=== PATIENT | male | born 1930 | race Caucasian/White ===

== ENCOUNTER 2017-11-11 08:26 | Inpatient (IN) ==
--- NOTE | 2017-11-11 09:21 | Emergency Department Note ---
Fall HPI - General Chief Complaint: Fall Stated Complaint: Fall, left hip pain Time Seen by Provider: 11/11/17 09:17 Source: patient, EMS Mode of arrival: wheelchair - History of Present Illness HPI Narrative: Patient fell in the [facility] room [facility] the [facility] this morning. Complained about pain to his left hip. He has a contusion laceration to the left eyebrow he is not on any blood thinners but does take an 81 mg aspirin was no loss of consciousness his main complaint is pain to the left hip also some pain to the wrist on the left as well. There is shortening and external rotation to the left lower extremity. pulses is 2+ equal and strong. Normal sensation and good capillary refill. Patient is alert and oriented. The laceration to the left eyebrow is 2.0 cm mild bleeding at this time. Having no neck pain she states he stepped there was no syncope type episodes - Related Data Home Medications Medication Instructions Recorded Confirmed aspirin 81 mg tablet,delayed 81 mg PO QDAY tab 11/08/14 11/04/17 release loperamide 1 mg/7.5 mL oral liquid 2 mg PO .COMPLEX PRN ml 11/08/14 11/04/17 multivitamin tablet 1 tab PO QDAY tab 11/08/14 11/04/17 omega 9-tha-kvl-fish oil 900 1 cap PO QDAY cap 11/08/14 11/04/17 mg-1,400 mg capsule,delayed release ascorbic acid (vitamin C) 500 mg 500 mg PO QDAY tab 04/01/16 11/04/17 tablet latanoprost 0.005 % eye drops 1 drp OPHTHALMIC QDAY 04/01/16 11/04/17 melatonin 5 mg tablet 2.5 mg PO HS tab 04/01/16 11/04/17 Previous Rx's Medication Instructions Recorded BD Ultra-Fine Mill[employer] [place] 32 See Dose Instructions .ROUTE 08/28/16 gauge x 5/32" .MEDSUPPLY #300 each NS diabetic shoes #2 each 09/26/16 OneTouch UltraSoft Lancets See Dose Instructions .ROUTE 10/31/16 .MEDSUPPLY #300 each NS lancets 33 gauge See Dose Instructions .ROUTE 11/11/16 .MEDSUPPLY #300 each cyanocobalamin (vit B-12) 1,000 1,000 mcg IM QMONTH #7 each 12/24/16 mcg/mL injection kit finasteride 5 mg tablet 5 mg PO QDAY #90 tab 02/24/17 tamsulosin 0.4 mg capsule 0.4 mg PO QDAY #90 cap 02/24/17 omeprazole 20 mg capsule,delayed 20 mg PO BID #180 cap 02/25/17 release Iron 65 mg PO 3XW #1 04/03/17 gabapentin 100 mg capsule 200 mg PO QHS #180 cap 04/23/17 insulin glargine (U-100) 100 10 unit SUB-Q QDAY #10 ml 05/01/17 unit/mL subcutaneous solution compression stocking,thigh See Dose Instructions .ROUTE 07/01/17 high,regular length,medium .MEDSUPPLY #2 each circumference blood sugar diagnostic strips See Dose Instructions .ROUTE 07/03/17 .MEDSUPPLY #100 each tramadol 50 mg tablet 50 mg PO TID PRN #90 tab 07/30/17 amlodipine 5 mg tablet 5 mg PO QDAY #90 tab 08/07/17 calcitriol 0.5 mcg capsule 0.5 mcg PO .qod #45 cap 08/11/17 rosuvastatin 5 mg tablet 2.5 mg PO QDAY #45 tab 08/15/17 torsemide 10 mg tablet 10 mg PO QDAY #90 tab 08/15/17 lisinopril 5 mg tablet 5 mg PO QDAY #90 tab 11/04/17 Allergies Allergy/AdvReac Type Severity Reaction Status Date / Time codeine AdvReac Mild Itching Verified 11/04/17 08:57 Procaine AdvReac Mild Itching Verified 11/04/17 08:57 Review of Systems All systems ED: reviewed and negative except as stated. Musculoskeletal: Reports: as per HPI, other (Pain to the left hip) Neurological: Reports: as per HPI, other (Laceration to the left eyebrow). Denies: headache, weakness, numbness, paresthesias, confusion, abnormal gait, dizziness Fall PMH - Past Medical History Medical history: Reports: CHF, COPD, coronary artery disease, DM, GERD, glaucoma , hyperlipidemia, hypertension, osteoporosis, renal disease, thyroid disease, valvular heart disease Family history: Reports: no significant family history - Social History smoking status: Former smoker Alcohol use: Reports: None Drug use: Reports: none Physical Exam Limitations: no limitations General appearance: alert Head: atraumatic Eye: Present: normal appearance, PERRL ENT: normal exam, normal oropharynx Neck: Present: normal inspection, full ROM Chest: Present: normal inspection Respiratory: Present: normal lung sounds bilaterally. Absent: respiratory distress, wheezes Cardiovascular: Present: regular rate, normal rhythm. Absent: bradycardia, tachycardia Abdominal: Present: soft, distention Extremities: Present: normal inspection, full ROM Hip/Pelvis: Present: tenderness (Tenderness to the left hip) Upper leg: Present: full ROM. Absent: tenderness Knee: Present: normal inspection, full ROM. Absent: tenderness Lower leg: Present: normal inspection, full ROM, other (Shortening and external rotation). Absent: tenderness Ankle: Present: normal inspection, full ROM Foot/toe: Present: normal inspection, full ROM. Absent: tenderness Neurovascular/Tendon: Present: normal capillary refill. Absent: pulse deficit, motor deficit Back: Present: normal inspection Course Vital Signs Temperature 97.2 F 11/11/17 08:26 Pulse Rate 88 11/11/17 08:26 Respiratory Rate 18 11/11/17 08:26 Blood Pressure 138/80 11/11/17 08:26 Pulse Oximetry (%) 98 11/11/17 08:26 Temperature 97.2 F 11/11/17 08:26 Pulse Rate 71 11/11/17 11:01 Respiratory Rate 18 11/11/17 08:26 Blood Pressure 122/76 11/11/17 11:01 Pulse Oximetry (%) 98 11/11/17 11:01 Procedures - Laceration Laceration 1 Site: face Description: stellate Depth: simple, single layer Local Anesthetic: lidocaine 1% Pre-repair: wound explored Size: 5-0 Technique: simple, interrupted Fall - MDM Narrative Medical decision making narrative: Head CT is negative, laceration of the left eyebrow sutured with 5 5-[address] of the hip and pelvis reveal fracture through the surgical neck of the left femur. Normal sensation full range of motion. Dr. Head contacted and requested the hospitalist to workup for possible surgery of the left hip. Patient last ate breakfast donut at 6:00 in the morning. - Lab Data Result diagrams: 11/11/17 09:29 11/11/17 09:29 Lab Results 11/11/17 11/11/17 11/11/17 Range/Units 09:29 09:29 09:29 WBC 9.9 (4.5-11.0) K/mcL RBC 3.85 L (4.50-5.90) M/mcL Hgb 12.6 L (13.5-16.5) g/dL Hct 37.5 L (41.0-55.0) % MCV 97.5 (80.0-100.0) fL MCH 32.7 (26.0-34.0) pg MCHC 33.5 (31.0-36.0) g/dL RDW 13.9 (11.5-14.5) % Plt Count 163 (140-440) K/mcL MPV 7.6 (7.4-10.4) fL Gran % 78.4 H (38.0-78.0) % Lymph % (Auto) 14.8 L (15.5-49.0) % [place] % (Auto) 4.6 (1.0-12.0) % Eos % (Auto) 1.9 (0.0-7.0) % Baso % (Auto) 0.3 (0.0-2.0) % Gran # 7.8 (1.8-8.0) K/mcL Lymph # (Auto) 1.5 (1.5-4.8) K/mcL [place] # (Auto) 0.5 (0.1-0.9) K/mcL Eos # (Auto) 0.2 (0.0-0.7) K/mcL Baso # (Auto) 0 (0.0-0.3) K/mcL PT 13.4 (11.9-14.5) sec INR 1.0 (0.9-1.1) Sodium 139 (133-145) mmol/L Potassium 4.4 (3.3-5.1) mmol/L Chloride 101 (96-108) mmol/L Carbon Dioxide 24 (22-30) mmol/L Anion Gap 14.0 (8-16) BUN 20 (8-23) mg/dl Creatinine 1.8 H (0.7-1.2) mg/dl GFR Calculation 33 Glucose 86 (70-105) mg/dL Calcium 9.2 (8.6-10.4) mg/dl Total Bilirubin 0.4 (0.0-1.0) mg/dL AST 32 (0-37) U/l ALT 24 (0-40) U/l Alkaline Phosphatase 72 (39-117) U/L Total Protein 6.3 (5.9-8.4) gm/dL Albumin 3.8 (3.2-5.2) gm/dL Globulin 2.5 (2.2-3.7) gm/dL Albumin/Globulin Ratio 1.5 (1.0-2.3) Disposition Pt seen by SYSTEMS SOFTWARE ENGINEER/PA only: No Clinical Impression: Fracture of left hip Qualifiers: Encounter type: initial encounter Fracture type: closed Qualified Code(s): S72.002A - Fracture of unspecified part of neck of left femur, initial encounter for closed fracture Disposition: Xfer As Inpt ([facility]) Condition: Fair Instructions: Hip Fracture (ED) Referrals: Troy Ruano MD [Primary Care Provider] -
[2017-11-11] MEDS ORDERED: HYDROmorphone 2 MG/ML VIAL IV PRN ×3 (09:25→16:41)
[2017-11-11] MEDS ORDERED: ONDANSETRON 4 MG/2 ML VIAL IV ONE ×2 (09:25→15:15)
--- NOTE | 2017-11-11 09:36 | Cat Scan Report ---
CLINICAL INFORMATION: Trauma COMPARISON: 11/23/[address] TECHNIQUE: 2.5 mm helical slices were obtained in the skull base to vertex. Following reconstruction, axial reformatted images were reviewed at bone and parenchymal windows. The exam was performed using radiation dose optimization techniques including, but not limited to, automated exposure control, adjustment of the mA and/or kV according to patient size and use of iterative reconstruction technique. FINDINGS: The ventricles, sulci, fissures, and cisterns are minimally enlarged compatible with mild age-related atrophy - no subdural hemorrhage or extra-axial fluid collection appreciated. Patchy chronic ischemic changes in the deep cerebral white matter are stable. There is no intracerebral hemorrhage, mass effect or edema. A 3 cm scalp hematoma is seen in the left superolateral supraorbital region - no underlying fracture. There is a minimally comminuted nasal fracture with may be chronic. IMPRESSION: Mild atrophy and chronic ischemic changes deep cerebral white matter - expected for age and stable since 11/23/2014. No intracerebral hemorrhage or other acute intracerebral finding 3 cm scalp hematoma in the left superior lateral orbital region. No underlying fracture Minimally comminuted displaced nasal fracture - age indeterminate Interpreted and Authenticated by: Jadiel Gann 11/11/17
--- NOTE | 2017-11-11 09:37 | XRay Report ---
CLINICAL INFORMATION: Trauma COMPARISON: 11/25/2014 FINDINGS: The heart size, mediastinum and pulmonary vessels are unremarkable. The lungs are clear. There are no effusions. A few old healed left-sided rib fractures noted. No definite acute fracture on the basis of this portable chest x-ray. IMPRESSION: Normal chest. Interpreted and Authenticated by: Jadiel Gann 11/11/17
--- NOTE | 2017-11-11 09:39 | XRay Report ---
CLINICAL INFORMATION: Trauma COMPARISON: None. FINDINGS: No fracture identified. Severe degenerative change in the radiocarpal, scapholunate, STT and first CMC joints are noted. There is a 14 mm degenerative cyst in the base of the radial styloid process. Heavy calcification seen in the triangle fibrocartilage. Mild diffuse soft tissue swelling noted IMPRESSION: No evidence of fracture. Chronic findings - as described Interpreted and Authenticated by: Jadiel Gann 11/11/17
[2017-11-11] MEDS ORDERED: EPINEPHRINE TOPICAL ONE (09:42)
[2017-11-11] MEDS ORDERED: LIDOCAINE HCL TOPICAL ONE (09:42)
[2017-11-11] MEDS ORDERED: DIPH,PERTUSS(ACELL),TET VAC/PF 0.5 ML SYRINGE IM ONE (09:44)
--- NOTE | 2017-11-11 09:54 | Cat Scan Report ---
CLINICAL INFORMATION: Trauma COMPARISON: Abdomen and pelvic CT - 08/21/2014. TECHNIQUE: 0.625 mm helical slices were obtained from the mid L4 through the subtrochanteric regions. Following reconstruction, 2.5 mm sagittal, coronal and axial reformations were processed. The exam was reviewed in bone and soft tissue windows. The exam was performed using radiation dose optimization techniques including, but not limited to, automated exposure control, adjustment of mA and/or kV according to patient size and use of iterative reconstruction technique. FINDINGS: There is an acute, obliquely oriented minimally displaced fracture through the base of the left femoral neck. Less than 10 degrees anterior angulation of fracture apex. Moderate degenerative change in the left hip has progressed the previous study. Right total hip prostheses remains anatomically aligned without evidence of loosening or infection. Mild degenerative change in both SI joints is stable. Soft tissues show normal-appearing prostate, seminal vesicles and urinary bladder. There are multiple sigmoid diverticuli with small amount of fluid in the posterior perisigmoid fat. This was not present in the previous CT. The remainder of the visualized colon and small bowel are normal. Minimal ectasia of the distal infrarenal abdominal aortic and iliac arteries is stable. IMPRESSION: 1. Acute, oblique minimally displaced fracture through the left femoral neck base. 2. Moderate degenerative change of the left hip progressing from the 2015 CT 3. Right total hip prostheses is anatomically aligned without evidence of loosening or infection 4. Sigmoid diverticulosis. No definite evidence of diverticulitis. The exception of a small amount of fluid in the perisigmoid fat. Please correlate with left lower quadrant pain and other symptoms Interpreted and Authenticated by: Jadiel Gann 11/11/17
[2017-11-11 09:58] LABS: Basophils # (Auto) 0 K/mcL (0.0-0.3); Basophils % (Auto) 0.3 % (0.0-2.0); Eosinophils # (Auto) 0.2 K/mcL (0.0-0.7); Eosinophils % (Auto) 1.9 % (0.0-7.0); Granulocytes % (Auto) 78.4 % (38.0-78.0); Lymphocytes # (Auto) 1.5 K/mcL (1.5-4.8); Lymphocytes % (Auto) 14.8 % (15.5-49.0); Mean Cell Volume 97.5 fL (80.0-100.0); Mean Corpuscular HGB Conc 33.5 g/dL (31.0-36.0); Mean Corpuscular Hemoglobin 32.7 pg (26.0-34.0); Monocytes # (Auto) 0.5 K/mcL (0.1-0.9); Monocytes % (Auto) 4.6 % (1.0-12.0); Platelet Count 163 K/mcL (140-440); RBC 3.85 M/mcL (4.50-5.90); Red Cell Distribution Width 13.9 % (11.5-14.5)
[2017-11-11] MEDS ORDERED: 0.9 % SODIUM CHLORIDE 1,000 ML IV SCH (10:00)
[2017-11-11 10:16] LABS: ALT/SGPT 24 U/l (0-40); Albumin 3.8 gm/dL (3.2-5.2); Albumin/Globulin Ratio 1.5 (1.0-2.3); Alkaline Phosphatase 72 U/L (39-117); Blood Urea Nitrogen 20 mg/dl (8-23)
[2017-11-11 11:58] LABS: Appearance,Urine CLEAR; Bacteria,Urine 0 /hpf (0); Bilirubin,Urine NEG (NEG); Color,Urine STRAW; Glucose,Urine (UA) NEGATIVE (NEG); Leukocyte Esterase,Urine NEG /uL (NEG); Mucus,Urine FEW /hpf (0); Protein,Urine NEG (NEG); Specific Gravity,Urine 1.009 (1.000-1.035); Urine Blood NEG mg/dL (<0.03); Urine Hyaline Cast 4 /lpf (0-2); Urine RBC 0 /hpf (0-1); Urine Squamous Epithelial Cell 0 /hpf (0-4); Urine WBC 0 /hpf (0-4); Urobilinogen,Urine NEG (NEG)
[2017-11-11] MEDS ORDERED: traZODone HCL 50 MG TABLET PO PRN (13:24)
[2017-11-11] MEDS ORDERED: MAGNESIUM SULFATE 2 GM/50 ML BAG IV PRN (13:24)
[2017-11-11] MEDS ORDERED: POTASSIUM CHLORIDE 20 MEQ PACKET PO PRN (13:24)
[2017-11-11] MEDS ORDERED: ACETAMINOPHEN 1,000 MG/100 ML BOTTLE IV PRN (13:24)
[2017-11-11] MEDS ORDERED: ONDANSETRON 4 MG/2 ML VIAL IV PRN (13:24)
[2017-11-11] MEDS ORDERED: DEXTROSE 50% 50 ML VIAL IV PRN (13:24)
[2017-11-11] MEDS ORDERED: BISACODYL 10 MG SUPP.RECT PR PRN (13:24)
[2017-11-11] MEDS ORDERED: MAGNESIUM HYDROXIDE 30 ML ORAL.SUSP PO PRN (13:24)
[2017-11-11] MEDS ORDERED: DEXTROSE 31 GM ORAL.SUSP PO PRN (13:24)
[2017-11-11] MEDS: 0.9 % SODIUM CHLORIDE 1,000 ML IV SCH (13:46)
[2017-11-11] MEDS: 0.9 % SODIUM CHLORIDE 10 ML SYRINGE IV SCH ×2 (13:47→22:09)
[2017-11-11] MEDS ORDERED: ceFAZolin 1 GM VIAL IV ONE (14:11)
[2017-11-11] MEDS ORDERED: DEXAMETHASONE 10 MG/ML VIAL IV ONE (15:15)
[2017-11-11] MEDS ORDERED: ePHEDrine 50 MG/ML AMPUL IV ONE (15:15)
[2017-11-11] MEDS ORDERED: PROPOFOL 200 MG/20 ML VIAL IV ONE (15:15)
[2017-11-11] MEDS ORDERED: MIDAZOLAM 2 MG/2 ML VIAL IV ONE (15:15)
[2017-11-11] MEDS ORDERED: LIDOCAINE HCL/PF 100 MG/5 ML SYRINGE IV ONE (15:15)
[2017-11-11] MEDS ORDERED: PHENYLEPHRINE 10 MG/ML VIAL IV ONE (15:15)
[2017-11-11] MEDS ORDERED: fentaNYL 100 MCG/2 ML VIAL IV ONE (15:15)
--- NOTE | 2017-11-11 15:23 | Consultation ---
DATE OF CONSULTATION: 11/11/2017 IDENTIFICATION: The patient is an 87-year-old male. CHIEF COMPLAINT: Left hip fracture. HISTORY: The patient sustained a fall in the locker room of the [employer] this morning. He had immediate pain in the left hip, was transferred to the emergency room here where he was evaluated and radiographs have demonstrated a femoral neck fracture. We are now called for further evaluation and management. PAST MEDICAL HISTORY: Significant for hypertension and some ophthalmologic issues. Otherwise, he is really quite healthy. PAST SURGICAL HISTORY: Significant for previous right total hip arthroplasty, but noncontributory to this left hip problem. MEDICATIONS: 1. Aspirin. 2. Loperamide. 3. Multivitamin. 4. Vitamin C. 5. Latanoprost eyedrops. 6. Melatonin. 7. Flomax. 8. Finasteride. 9. Gabapentin. 10. Insulin. 11. Tramadol. 12. Lisinopril. ALLERGIES: 1. CODEINE which causes itching. 2. PROCAINE which causes itching. REVIEW OF SYSTEMS: The balance of a 10-point review of systems is negative. He has generally been in a good state of health, living independently at [facility]. PHYSICAL EXAMINATION: GENERAL: Awake and alert, resting comfortably. ORTHOPEDIC: His bilateral lower extremities are carefully positioned. He has no deformity. He does have some pain in the left knee with range of motion consistent with a chronic problem. He has pain with any range of motion of the left hip. He has no gross deformity. No significant shortening. He has minimal lymphedema. NEUROVASCULAR: Without deficit in his bilateral lower extremities. IMAGING: Radiographs demonstrate a minimally displaced fracture of the femoral neck which is quite low on some of the views but is transcervical mid-neck on some of the other views. IMPRESSION: Nondisplaced or minimally displaced femoral neck fracture of the left. PLAN: We will plan to proceed with a reduction and fixation via cannulated screws. The procedure, risks, complications and limitations were discussed with the patient. He understands these well and wishes to proceed. ESTEFANÍA:min Job ID: [id number] Doc ID: [id number] Rudolph Head MD
[2017-11-11] MEDS ORDERED: BENZOCAINE/MENTHOL 1 LOZENGE PO PRN (16:05)
[2017-11-11] MEDS ORDERED: IPRATROPIUM/ALBUTEROL 3 ML AMPUL.NEB NEB PRN ×2 (16:05→16:41)
[2017-11-11] MEDS ORDERED: MEPERIDINE 25 MG/ML SYRINGE IV PRN (16:05)
[2017-11-11] MEDS ORDERED: FLUMAZENIL 0.1 MG/ML ML IV PRN (16:05)
[2017-11-11] MEDS ORDERED: METHOCARBAMOL 1,000 MG/10 ML VIAL IV PRN (16:05)
[2017-11-11] MEDS ORDERED: LACTATED RINGERS 250 ML IV PRN (16:05)
[2017-11-11] MEDS ORDERED: NALOXONE HCL 0.4 MG/ML VIAL IV PRN (16:05)
[2017-11-11] MEDS ORDERED: PROMETHAZINE 25 MG/ML VIAL IV PRN (16:05)
[2017-11-11] MEDS ORDERED: ACETAMINOPHEN 1,000 MG/100 ML BOTTLE IV ONE (16:05)
--- NOTE | 2017-11-11 16:10 | Brief Operative Note ---
Date of procedure: 11/11/17 Pre-op diagnosis: hip fracture Post-op diagnosis: same Procedure: cannulated screws Grafts/Implants: Yes (kervin) Anesthesia: GETA Complications: none Surgeon: Rudolph Head Estimated blood loss (cc): 10 Condition: stable Disposition: PACU
[2017-11-11] MEDS ORDERED: LACTATED RINGERS 1,000 ML IV SCH (16:15)
[2017-11-11] MEDS ORDERED: HYDROCODONE/APAP 7.5/325MG TABLET PO ONE (16:16)
[2017-11-11] MEDS: fentaNYL 100 MCG/2 ML VIAL IV PRN ×3 (16:21→16:34)
[2017-11-11] MEDS ORDERED: PROMETHAZINE 25 MG/ML VIAL IM PRN (16:41)
[2017-11-11] MEDS ORDERED: MEPERIDINE 50 MG/ML INJECTION IM PRN (16:41)
[2017-11-11 17:15] LABS: Appearance,Urine CLEAR; Bacteria,Urine 0 /hpf (0); Bilirubin,Urine NEG (NEG); Color,Urine STRAW; Glucose,Urine (UA) NEGATIVE (NEG); Leukocyte Esterase,Urine NEG /uL (NEG); Mucus,Urine FEW /hpf (0); Protein,Urine NEG (NEG); Specific Gravity,Urine 1.012 (1.000-1.035); Urine Blood NEG mg/dL (<0.03); Urine Hyaline Cast 6 /lpf (0-2); Urine RBC 1 /hpf (0-1); Urine Squamous Epithelial Cell 0 /hpf (0-4); Urine WBC < 1 /hpf (0-4); Urobilinogen,Urine NEG (NEG)
[2017-11-11] MEDS: INSULIN LISPRO 1 UNIT/0.01 ML UNIT SQ SCH ×2 (17:49→21:35)
--- NOTE | 2017-11-11 18:08 | XRay Report ---
CLINICAL INFORMATION: ORIF left femoral neck fracture COMPARISON: None. FINDINGS: Digital films from the OR are submitted. Final film shows acute fracture through the left femoral neck reduced to anatomic alignment and transfixed by three cannulated screws IMPRESSION: ORIF femoral neck fracture - anatomic alignment Interpreted and Authenticated by: Jadiel Gann 11/11/17
--- NOTE | 2017-11-11 20:17 | Internal Med History&Physical ---
Medical - H&P: [facility] Patient information: Note initiated : 11/11/17 at 8:14 pm Service Date, if different from initiated Date: [] Patient: John Hernández a 87 y/o M admitted on 11/11/17 for Fall, Lt Hip Pain. Chief Complaint: [] Chief complaint: fall with left hip pain History of present illness: Mr. Hernández is a 87 year old M sustained fall injuring left hip. [facility] [place] [facility] when he suddenly went down. It is unclear the exact precipitant as he does not recollect slipping or tripping. He landed on his left hip sustaining injury. He was subsequently brought into the ER Workup in ER consistent with left hip fracture. Admitted for operative repair. Orthopedics consulted. Extensive past medical issues including chronic kidney disease/insulin-dependent DM type 2/history of CAD. Patient denies lightheadedness chest pain, neck pain, vertigo, dizziness, thunderclap headache or recent falls. He denies fever chills shortness of breath diarrhea dysuria, weight loss Review of systems 10 point review systems was performed and is negative except as discussed above Medical - H&P: PMH Medical history: Medical History (Last Reviewed 11/04/17 @ 12:33 by Chantelle Serna MD) Upper respiratory infection (Resolved) Expressive aphasia (Resolved) Skin tear of left upper arm without complication (Resolved) Benign prostatic hyperplasia (Chronic) Secondary hyperparathyroidism of renal origin (Chronic) Hypertensive renal disease (Chronic) Vitamin D deficiency (Chronic) Urinary urgency (Chronic) Urinary incontinence (Chronic) Renal osteodystrophy (Chronic) Chronic renal failure, stage 3 (moderate) (Chronic) Pseudophakia (Chronic) Acute gouty arthropathy (Chronic) History of nose injury (Resolved) Peripheral vascular disease (Chronic) Overweight (Chronic) Osteoarthrosis (Chronic) Osteoarthritis (Chronic) Nocturia (Chronic) Acquired hypothyroidism (Chronic) Hyperuricemia (Chronic) Hypertension, essential (Chronic) Hyperparathyroidism, secondary renal (Chronic) Hyperlipidemia (Chronic) Chronic kidney disease (Chronic) Gout (Chronic 02/20/12) Glaucoma (Chronic) Gastroesophageal reflux (Chronic) Edema (Chronic) Dysuria (Chronic) Double vision (Chronic) Diverticulosis of colon (Chronic) Type 2 diabetes mellitus (Chronic) Degenerative joint disease (Chronic) Cramp of limb (Chronic) 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) Congestive heart failure (Chronic) History of colonic polyps (Chronic) Colitis, Clostridium difficile (Chronic 09/01/14) Chronic obstructive pulmonary disease (Chronic) Chronic kidney disease, stage IV (severe) (Chronic) Ischemia of heart, chronic (Chronic) Benign prostatic hypertrophy with lower urinary tract symptoms (LUTS) (Chronic) Blepharitis (Chronic) Barretts esophagus (Chronic) 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) Anemia (Chronic) Surgical history: Social History (Last Updated 11/04/17 @ 12:41 by Chantelle Serna MD) No Social History Section defined Past Surgical History (Last Reviewed 11/04/17 @ 12:33 by Chantelle Serna MD) History of total hip arthroplasty (Resolved) History of tonsillectomy (Resolved) History of coronary artery stent placement (Resolved) History of colonoscopy (Resolved) History of colectomy (Resolved) History of cholecystectomy (Resolved) History of bilateral cataract extraction (Resolved) History of appendectomy (Resolved) History of adenoidectomy (Resolved) History of abdominal surgery (Resolved) Abnormal findings on esophagogastroduodenoscopy (EGD) (Chronic) History of esophagogastroduodenoscopy (EGD) (Chronic 09/23/17) Pertinent family history: Family History (Last Reviewed 11/04/17 @ 12:33 by Chantelle Serna MD) Unknown Family history of diabetes mellitus Mother Essential hypertension Father Parkinson's Disease Smoking status: Former smoker Medical - H&P: Meds Home Medications Medication Instructions Recorded Confirmed Type aspirin 81 mg tablet,delayed 81 mg PO QDAY tab 11/08/14 11/11/17 History release multivitamin tablet 1 tab PO QDAY tab 11/08/14 11/11/17 History omega 3-qxg-pmy-fish oil 900 1 cap PO QDAY cap 11/08/14 11/11/17 History mg-1,400 mg capsule,delayed release ascorbic acid (vitamin C) 500 mg 500 mg PO QDAY tab 04/01/16 11/11/17 History tablet latanoprost 0.005 % eye drops 1 drp OPHTHALMIC QDAY 04/01/16 11/11/17 History melatonin 5 mg tablet 2.5 mg PO HS tab 04/01/16 11/11/17 History cyanocobalamin (vit B-12) 1,000 1,000 mcg IM QMONTH #7 each 12/24/16 11/11/17 Rx mcg/mL injection kit finasteride 5 mg tablet 5 mg PO QDAY #90 tab 02/24/17 11/11/17 Rx tamsulosin 0.4 mg capsule 0.4 mg PO QDAY #90 cap 02/24/17 11/11/17 Rx omeprazole 20 mg capsule,delayed 20 mg PO BID #180 cap 02/25/17 11/11/17 Rx release Iron 65 mg PO 3XW #1 04/03/17 11/11/17 Rx gabapentin 100 mg capsule 200 mg PO QHS #180 cap 04/23/17 11/11/17 Rx tramadol 50 mg tablet 50 mg PO TID PRN #90 tab 07/30/17 11/11/17 Rx amlodipine 5 mg tablet 5 mg PO QDAY #90 tab 08/07/17 11/11/17 Rx calcitriol 0.5 mcg capsule 0.5 mcg PO .qod #45 cap 08/11/17 11/11/17 Rx rosuvastatin 5 mg tablet 2.5 mg PO QDAY #45 tab 08/15/17 11/11/17 Rx Blood Sugar Diagnostic [Contour] 0 each .ROUTE .MEDSUPPLY 11/11/17 11/11/17 History Comp.stocking,Thigh,Reg,Medium 0 each .ROUTE .MEDSUPPLY 11/11/17 11/11/17 History [T.e.d. Anti-Embolism Stocking] Insulin Glargine, Human [Lantus] 8 unit SQ QPM 11/11/17 11/11/17 History Lancets [Micro Thin Lancets] 0 each .ROUTE .MEDSUPPLY 11/11/17 11/11/17 History Lancets [OneTouch UltraSoft 0 each .ROUTE .MEDSUPPLY 11/11/17 11/11/17 History Lancets] Pen Needle, Diabetic [BD 0 each .ROUTE .MEDSUPPLY 11/11/17 11/11/17 History Ultra-Fine Millicent Pen [place]] diabetic shoes 1 each MISC DAILY 11/11/17 11/11/17 History Aspirin 325 mg PO BID #60 tab 11/13/17 Rx Hydrocodone/APAP 7.5/325Mg [Romeo 1 - 2 tab PO Q6HP PRN #60 tab 11/13/17 Rx 7.5-325Mg] torsemide 10 mg tablet 10 mg PO QDAY #90 tab 11/13/17 Rx traMADol [Ultram] 50 mg PO Q6HP PRN #60 tab 11/13/17 Rx Allergies Allergy/AdvReac Type Severity Reaction Status Date / Time codeine AdvReac Mild Itching Verified 11/04/17 08:57 Procaine AdvReac Mild Itching Verified 11/04/17 08:57 Medical - H&P: Exam - Constitutional Vitals: Temp Pulse Resp BP Pulse Ox 98.1 F 85 16 120/77 95 11/11/17 17:02 11/11/17 17:42 11/11/17 17:30 11/11/17 17:42 11/11/17 19:09 General appearance: cooperative, no acute distress Exam: Alert oriented nonlabored breathing Eye movements symmetric Oral cavity dry no ear discharge head normocephalic,Significant bruising left eye Neck no lymphadenopathy S1 and S2 regular Chest diminished breath sounds bases Tenderness left lateral chest Abdomen soft Skin extensive bruising left upper extremity/face and lower extremity Left lower extremity rotated and shortened Psych alert cooperative Neuro nonfocal normalized function Medical - H&P: Reslt - Labs CBC & Chem 7: 11/13/17 04:21 11/13/17 04:21 Labs: Short CBC 11/11/17 Range/Units 09:29 WBC 9.9 (4.5-11.0) K/mcL Hgb 12.6 L (13.5-16.5) g/dL Hct 37.5 L (41.0-55.0) % Plt Count 163 (140-440) K/mcL BMP 11/11/17 09:29 Sodium 139 Potassium 4.4 Chloride 101 Carbon Dioxide 24 BUN 20 Creatinine 1.8 H Glucose 86 Calcium 9.2 Liver Function 11/11/17 Range/Units 09:29 Total Bilirubin 0.4 (0.0-1.0) mg/dL AST 32 (0-37) U/l ALT 24 (0-40) U/l Alkaline Phosphatase 72 (39-117) U/L Albumin 3.8 (3.2-5.2) gm/dL Urine 11/11/17 11/11/17 Range/Units 11:27 13:55 Urine Color Straw Straw Urine Appearance Clear Clear Urine pH 6.0 6.0 (5.0-9.0) Ur Specific [place] 1.009 1.012 (1.000-1.035) Urine Protein Neg Neg (NEG) mg/dL Urine Glucose (UA) Negative Negative (NEG) mg/dL Medical - H&P: A/P (1) Fracture of left hip Current visit: Yes Status: Acute * Left femoral neck fracture-orthopedics consulted for operative repair. Management per orthopedics * Pain management per orthopedics Hospitalist consult * Preop risk eval- based on RCRI [place] [employer] risk stratification patient would fall under high risk category given advanced age along with history of coronary artery disease and IDDm. also underlying CKD with creatinine 1,8. however no modifiable risk factors. Risks were discussed with patient, Pt can proceed with surgery. He clearly understands the risk which may include acute coronary event/CVA in the immediate intraoperative/ postoperative phase. There are no modifiable risk factors. Surgery and anesthesia specific risk factors will be addressed by individual care providers. * History of hypertension on amlodipine * BPH on finasteride/tamsulosin * Neuropathy on gabapentin * DM type II on basal prandial insulin * History of glaucoma latanoprost * GERD on PPI * Hyperlipidemia and statin * Full code * Prophylaxis subcutaneous heparin to start to lower postoperatively Plan * Review postop * Restart home meds * Pain management per orthopedics Medical - H&P: Qual - Stroke Symptom Onset Unknown: No - VTE Deep Vein Thrombosis/Pulmonary Embolism Present on Admission: No
[2017-11-11] MEDS: GABAPENTIN 100 MG CAPSULE PO SCH (21:34)
[2017-11-11] MEDS: DOCUSATE SODIUM 100 MG CAPSULE PO SCH (21:35)
[2017-11-11] MEDS: SENNOSIDES/DOCUSATE SODIUM 1 TAB TABLET PO SCH (21:35)
[2017-11-11] MEDS ORDERED: INSULIN GLARGINE, HUMAN 1 UNIT/0.01 ML SQ ONE (22:08)
[2017-11-11] MEDS: LATANOPROST OPHTH DROPS 2.5ML BOTTLE OU SCH (22:09)
[2017-11-11] MEDS: INSULIN GLARGINE, HUMAN 1 UNIT/0.01 ML SQ SCH ×2 (22:09→22:10)
[2017-11-12] MEDS: traMADol 50 MG TABLET PO PRN ×2 (06:12→20:49)
[2017-11-12] MEDS: 0.9 % SODIUM CHLORIDE 10 ML SYRINGE IV SCH ×3 (06:12→20:51)
--- NOTE | 2017-11-12 06:54 | Orthopedic Progress Note ---
Subjective Patient information: Note initiated : 11/12/17 at 6:52 am Service Date, if different from initiated Date: [] Patient: John Hernández 87 y/o M admitted on 11/11/17 for Fall, Lt Hip Pain. Chief Complaint: [S/p ORIF of left femoral neck fx] Patient is doing well. Complains of mild left lateral post-surgical hip pain. Denies any lower extremity weakness, SOA, chest pain, or calf tenderness. Principal diagnosis: Left femoral neck fx Objective Vital signs: Vital Signs Temp Pulse Pulse Resp BP BP Pulse Ox 11/12/17 03:05 97.9 F 80 12 108/63 94 11/12/17 00:00 97.6 F 88 12 92/54 94 11/11/17 20:01 97.4 F 91 H 12 96/70 94 11/11/17 19:09 95 11/11/17 19:01 81 125/84 95 11/11/17 18:32 92 H 130/72 95 11/11/17 18:16 93 H 126/79 99 11/11/17 18:01 89 104/71 96 11/11/17 17:42 85 120/77 94 11/11/17 17:30 92 H 16 98 11/11/17 17:27 75 126/67 96 11/11/17 17:12 83 111/56 97 11/11/17 17:02 98.1 F 83 12 128/63 100 11/11/17 16:50 84 12 111/74 100 11/11/17 16:35 82 14 124/65 100 11/11/17 16:30 83 12 137/74 100 11/11/17 16:25 81 12 124/70 100 18 16:20 86 18 124/71 100 11/11/17 16:15 88 16 108/67 100 11/11/17 16:10 67 10 L 102/67 100 11/11/17 16:05 97.7 F 72 12 87/51 99 11/11/17 13:24 96.9 F L 80 16 125/70 95 11/11/17 13:18 96.9 F L 80 16 125/70 95 11/11/17 12:31 88 106/71 98 11/11/17 12:01 79 128/78 98 11/11/17 11:31 80 107/70 98 11/11/17 11:01 71 122/76 98 11/11/17 10:51 74 90 11/11/17 10:46 74 113/66 93 11/11/17 10:32 74 115/59 94 11/11/17 10:17 146/76 11/11/17 10:01 80 139/90 96 11/11/17 09:46 84 134/82 95 11/11/17 09:31 71 137/80 95 11/11/17 09:16 79 143/94 96 11/11/17 09:13 79 150/88 97 11/11/17 08:31 90 138/80 95 11/11/17 08:26 97.2 F 88 18 138/80 98 Intake and Output 11/11/17 11/12/17 11/12/17 21:59 05:59 13:59 Intake Total 1200 / 1200 340 / 340 Output Total 620 / 620 175 / 175 100 / 100 Balance 580 / 580 165 / 165 -100 / -100 Intake: IV 1200 / 1200 Oral 340 / 340 Output: Void Amount 550 / 550 175 / 175 100 / 100 Estimated Blood Loss 70 / 70 Other: # Voids 2 Weight 162 lb 8 oz Intake & Output: Intake & Output 11/11/17 11/12/17 11/12/17 21:59 05:59 13:59 Intake Total 1200 / 1200 340 / 340 Output Total 620 / 620 175 / 175 100 / 100 Balance 580 / 580 165 / 165 -100 / -100 Weight 162 lb 8 oz Intake: IV 1200 / 1200 Oral 340 / 340 Output: Void Amount 550 / 550 175 / 175 100 / 100 Estimated Blood Loss 70 / 70 Other: # Voids 2 Incision: Yes healing, Yes clean and dry Incision clean and dry: Yes Dressing: Yes clean, Yes dry, Yes intact Weight bearing status: non (TTWB on LLE) Neurological exam IM: Yes alert, Yes oriented X3, Yes motor sensory intact, Yes neurovascular intact Extremities exam IM: Yes calf tenderness (Negative), Yes tenderness (Left lateral hip), Yes Edgar's sign (Negative), Yes Foot pink and warm, Yes neurovascular intact - Labs CBC & BMP: 11/11/17 09:29 11/11/17 09:29 Labs: Orthopedic Labs 11/11/17 09:29 PT 13.4 INR 1.0 11/12/17 11/11/17 05:51 09:29 Hgb Pending 12.6 L Hct Pending 37.5 L Assessment and Plan (1) Fracture of left hip TTWB on LLE. May stand with PT. Likely discharge to [facility] for rehab in 2 days. Status: Acute Qualifiers: Encounter type: initial encounter Fracture type: closed Qualified Code(s) : S72.002A - Fracture of unspecified part of neck of left femur, initial encounter for closed fracture
--- NOTE | 2017-11-12 06:56 | Operative Note ---
DATE OF OPERATION: 11/11/2017 PREOPERATIVE DIAGNOSIS: Left femoral neck fracture. POSTOPERATIVE DIAGNOSIS: Left femoral neck fracture. OPERATION PROPOSED: Internal fixation using cannulated screws, left femoral neck fracture. OPERATION PERFORMED: Internal fixation using cannulated screws, left femoral neck fracture. OPERATING SURGEON: Gabe Head MD LIQUID SUGAR FORTIFIER: None. INDICATIONS: This is a gentleman who has a minimally displaced femoral neck fracture. Some of it does go fairly low, but we have elected to proceed with fixation using cannulated screws. We have reviewed the risks, complications and limitations, and patient wishes to proceed. OPERATION IN DETAIL: Informed consent was obtained. He was taken to the operating where he was provided appropriate anesthetic and prophylactic antibiotics. He was carefully positioned. His hip was prepped sterilely. A 3.2 mm guidewire was advanced retrograde across the fracture. I then advanced a 6.5 cannulated screw across the fracture, this at actually fairly reasonable purchase of each of the three screws. I placed two additional screws cephalad, one anterior and one posterior. The wounds were irrigated, and closed with 2-0 inverted and Dermabond. The patient tolerated the procedure well. No complications. Estimated blood loss nil. GDD:hattie Job ID: [id number] Doc ID: [id number] Rudolph Head MD
[2017-11-12 07:41] LABS: Mean Cell Volume 98.8 fL (80.0-100.0); Mean Corpuscular HGB Conc 33.1 g/dL (31.0-36.0); Mean Corpuscular Hemoglobin 32.7 pg (26.0-34.0); Platelet Count 147 K/mcL (140-440); RBC 3.45 M/mcL (4.50-5.90); Red Cell Distribution Width 13.7 % (11.5-14.5)
[2017-11-12 07:44] LABS: ALT/SGPT 19 U/l (0-40); Albumin 3.3 gm/dL (3.2-5.2); Albumin/Globulin Ratio 1.4 (1.0-2.3); Alkaline Phosphatase 60 U/L (39-117); Bilirubin,Direct < 0.2 mg/dL (0.0-0.3); Blood Urea Nitrogen 23 mg/dl (8-23); Gamma Glutamyl Transpeptidase 27 U/L (8-61); Uric Acid 7.8 mg/dL (2.5-8.0)
[2017-11-12 08:24] LABS: Lymphocytes % 6 % (15-49); Platelet Estimate NORMAL (NORMAL); RBC Morphology NORMAL (NORMAL); Segmented Neutrophils % 94 % (38-78)
[2017-11-12] MEDS: DOCUSATE SODIUM 100 MG CAPSULE PO SCH ×2 (08:49→20:48)
[2017-11-12] MEDS: OMEPRAZOLE 20 MG CAPSULE PO SCH ×2 (08:49→17:49)
[2017-11-12] MEDS: amLODIPine 5 MG TABLET PO SCH (08:49)
[2017-11-12] MEDS: TAMSULOSIN 0.4 MG CAPSULE PO SCH (08:49)
[2017-11-12] MEDS: FINASTERIDE 5 MG TABLET PO SCH (08:49)
[2017-11-12] MEDS: MULTIVIT,THER IRON,CA,FA & MIN 1 TABLET PO SCH (08:49)
[2017-11-12] MEDS: TORSEMIDE 10 MG TABLET PO SCH (08:49)
[2017-11-12] MEDS: sitaGLIPtin 100 MG TABLET PO SCH (08:49)
[2017-11-12] MEDS ORDERED: ROSUVASTATIN CALCIUM 2.5 MG PO SCH (09:00)
[2017-11-12] MEDS ORDERED: INSULIN GLARGINE, HUMAN 1 UNIT/0.01 ML SQ SCH (09:00)
[2017-11-12] MEDS: INSULIN LISPRO 1 UNIT/0.01 ML UNIT SQ SCH ×4 (09:26→20:50)
[2017-11-12] MEDS: ACETAMINOPHEN 325 MG TABLET PO PRN ×2 (09:27→17:49)
[2017-11-12] MEDS: 0.9 % SODIUM CHLORIDE 1,000 ML IV SCH ×2 (13:30→14:28)
--- NOTE | 2017-11-12 18:08 | Internal Med Progress Note ---
Medical - PN: Subj Patient information: Note initiated : 11/12/17 at 6:08 pm Service Date, if different from initiated Date: [] Patient: John Hernández a 87 y/o M admitted on 11/11/17 for Fall, Lt Hip Pain/ Left Femoral Neck Fracture. Chief Complaint: [] Interval history: Mr. Hernández is a 87 year old M sustained fall injuring left hip[place] [facility] [place] [facility] [place]. It is unclear the exact precipitant as he does not recollect slipping or tripping. He landed on his left hip sustaining injury. He was subsequently brought into the ER Workup in ER consistent with left hip fracture. Admitted for operative repair. Orthopedics consulted. Extensive past medical issues including chronic kidney disease/insulin-dependent DM type 2/history of CAD. Patient denies lightheadedness chest pain, neck pain, vertigo, dizziness, thunderclap headache or recent falls. He denies fever chills shortness of breath diarrhea dysuria, weight loss 11/12-postop day 1. Patient doing well. No overnight events. No concerns per staff. White count 9.4. Creatinine 1.7. Ongoing physical therapy. Pain in good control. No fever chills. Anticipate discharge to SNF in 24-48 hours - Constitutional Vitals: Vital Signs Temp Pulse Resp BP Pulse Ox 98.5 F 56 L 20 121/70 95 11/12/17 16:06 11/12/17 08:30 11/12/17 16:06 11/12/17 16:06 11/12/17 16:06 Period Temp Pulse Resp BP Sys/Bell Pulse Ox Last 24 Hr 97.4 F-98.5 F 56-93 12-22 92-131/54-84 93-99 Intake and Output 11/12/17 11/12/17 11/12/17 05:59 13:59 21:59 Intake Total 340 / 340 1240 / 1240 130 / 130 Output Total 175 / 175 525 / 525 Balance 165 / 165 715 / 715 130 / 130 Weight 162 lb 8 oz Patient Weight 11/13/17 05:59 Weight 162 lb 8 oz Intake & Output: Intake & Output 11/12/17 11/12/17 11/12/17 05:59 13:59 21:59 Intake Total 340 / 340 1240 / 1240 130 / 130 Output Total 175 / 175 525 / 525 Balance 165 / 165 715 / 715 130 / 130 Weight 162 lb 8 oz Intake: IV 1000 / 1000 Sodium Chloride 0.9% 1,000 ml @ 1000 / 1000 50 mls/hr IV .Q20H [facility] Rx#: [id number] Oral 340 / 340 240 / 240 130 / 130 Output: Void Amount 175 / 175 525 / 525 # of times incontinent of urine 0 / 0 Other: Meal Breakfast Lunch Percent of Meal Consumed 100% 100% Feeding Ability Independent # Voids 1 General appearance: no acute distress Exam: Alert oriented nonlabored breathing No anxiety Nondistended abdomen No significant postop pain Medical - PN: Obj Da - Labs CBC & Chem 7: 11/13/17 04:21 11/13/17 04:21 Labs: Abnormal Lab Results 11/12/17 11/12/17 11/11/17 05:51 05:51 13:55 RBC 3.45 L Hgb 11.3 L Hct 34.1 L Gran % Lymph % (Auto) Seg Neutrophils % 94 H Lymphocytes % 6 L Creatinine 1.7 H Glucose 268 H Lactate Dehydrogenase 266 H Total Protein 5.6 L Hyaline Casts 6 H 11/11/17 11/11/17 11/11/17 11:27 09:29 09:29 RBC 3.85 L Hgb 12.6 L Hct 37.5 L Gran % 78.4 H Lymph % (Auto) 14.8 L Seg Neutrophils % Lymphocytes % Creatinine 1.8 H Glucose Lactate Dehydrogenase Total Protein Hyaline Casts 4 H Meds: Medications Acetaminophen (Tylenol) 650 mg PO Q4-6HP PRN PRN Reason: PAIN/FEVER > 101 Last Admin: 11/12/17 17:49 Dose: 650 mg Amlodipine Besylate (Norvasc) 5 mg PO DAILY [facility] Last Admin: 11/12/17 08:49 Dose: 5 mg Bisacodyl (Dulcolax) 10 mg NM Q2-3DAYS PRN PRN Reason: Constipation Calcitriol (Rocaltrol) 0.5 mcg PO Q48@0900 [facility] Dextrose (Dextrose 50%) 0 ml IV UD PRN PRN Reason: Hypoglycemia Diagnostic Test (Pha) (Accu-Chek) 1 each FS ACHS [facility] Last Admin: 11/12/17 17:45 Dose: 1 each Docusate Sodium (Colace) 100 mg PO BID [facility] Last Admin: 11/12/17 08:49 Dose: 100 mg Finasteride (Proscar) 5 mg PO QDAY [facility] Last Admin: 11/12/17 08:49 Dose: 5 mg Gabapentin (Neurontin) 200 mg PO QHS [facility] Last Admin: 11/11/17 21:34 Dose: 200 mg Glucose (Insta-Glucose) 15 gm PO PRN PRN PRN Reason: Hypoglycemia Heparin Sodium (Porcine) (Heparin) 5,000 unit SQ Q12 [facility] Hydromorphone HCl (Dilaudid) 0 mg IV Q4HP PRN PRN Reason: PAIN LEVEL > 6 Magnesium Sulfate (Magnesium Sulfate) 2 gm in 50 mls @ 50 mls/hr IV UD PRN PRN Reason: MG = or < 1.7 Sodium Chloride (Sodium Chloride 0.9%) 1,000 mls @ 50 mls/hr IV .Q20H [facility] Stop: 11/14/17 01:23 Last Admin: 11/12/17 14:28 Dose: 50 mls/hr Acetaminophen (Ofirmev) 1,000 mg in 100 mls @ 200 mls/hr IV Q6HP PRN PRN Reason: PAIN/FEVER > 101 Insulin Glargine (Lantus) 8 unit SQ QPM [facility] Last Admin: 11/11/17 22:10 Dose: Not Given Insulin Human Lispro (Humalog) 0 unit SQ ACHS [facility] PRN Reason: Protocol Last Admin: 11/12/17 17:45 Dose: 3 unit Iron Carb/Multivit/Simms/Folic Acid (Multivitamin W/Minerals) 1 tab PO DAILY [facility] Last Admin: 11/12/17 08:49 Dose: 1 tab Latanoprost (Xalatan Ophth Drops) 1 gtt OU HS [facility] Last Admin: 11/11/17 22:09 Dose: Not Given Magnesium Hydroxide (Milk Of Magnesia) 30 ml PO HSP PRN PRN Reason: Constipation Melatonin 3mg 3 mg PO HS [facility] Last Admin: 11/11/17 22:08 Dose: Not Given Omeprazole (Prilosec) 20 mg PO BIDAC [facility] Last Admin: 11/12/17 17:49 Dose: 20 mg Ondansetron HCl (Zofran) 4 mg IV Q4-6HP PRN PRN Reason: Nausea And Vomiting Potassium Chloride (Klor-Con) 40 meq PO DAILYP PRN PRN Reason: K+ < 3.5 Senna/Docusate Sodium (Senna Plus Tablet) 1 tab PO HS [facility] Last Admin: 11/11/17 21:35 Dose: 1 tab Simvastatin (Zocor) 10 mg PO HS [facility] Sitagliptin Phosphate (Januvia) 100 mg PO DAILY [facility] Last Admin: 11/12/17 08:49 Dose: 100 mg Sodium Chloride (Saline Flush) 10 ml IV Q8 [facility] Last Admin: 11/12/17 14:59 Dose: Not Given Tamsulosin HCl (Flomax) 0.4 mg PO QDAY [facility] Last Admin: 11/12/17 08:49 Dose: 0.4 mg Torsemide (Demadex) 10 mg PO QDAY [facility] Last Admin: 11/12/17 08:49 Dose: 10 mg Tramadol HCl (Ultram) 50 mg PO TIDP PRN PRN Reason: pain Last Admin: 11/12/17 06:12 Dose: 50 mg Trazodone HCl (Desyrel) 50 mg PO HSP PRN PRN Reason: Insomnia Medical - PN: A/P - Time Spent With Patient Total time spent is greater than 50% in coordination of care (as documented) at patient's floor/unit and/or counseling patient: (1) Fracture of left hip Status: Acute Assessment and plan: * Left femoral neck fracture -postop day 1.. Management per orthopedics * Pain management per orthopedics. Stable * DVT prophylaxis on aspirin per orthopedics Hospitalist consult * History of hypertension -well controlled on amlodipine * BPH -stable on finasteride/tamsulosin * Neuropathy on gabapentin * DM type II on basal prandial insulin * History of glaucoma latanoprost * GERD on PPI * Hyperlipidemia and statin * Full code Plan * Pre-existing medical condition management as above * Avoid nephrotoxins Current Visit: Yes Medical - PN: Qual - Stroke Symptom Onset Unknown: No - VTE Deep Vein Thrombosis/Pulmonary Embolism Present on Admission: No
[2017-11-12] MEDS: GABAPENTIN 100 MG CAPSULE PO SCH (20:48)
[2017-11-12] MEDS: SENNOSIDES/DOCUSATE SODIUM 1 TAB TABLET PO SCH (20:48)
[2017-11-12] MEDS: INSULIN GLARGINE, HUMAN 1 UNIT/0.01 ML SQ SCH (20:49)
[2017-11-12] MEDS: HEPARIN 5,000 UNIT/ML VIAL SQ SCH (20:50)
[2017-11-12] MEDS: LATANOPROST OPHTH DROPS 2.5ML BOTTLE OU SCH (20:51)
[2017-11-12] MEDS ORDERED: SIMVASTATIN 10 MG TABLET PO SCH (21:00)
[2017-11-13 05:28] LABS: Mean Cell Volume 98.8 fL (80.0-100.0); Mean Corpuscular HGB Conc 33.1 g/dL (31.0-36.0); Mean Corpuscular Hemoglobin 32.7 pg (26.0-34.0); Platelet Count 134 K/mcL (140-440); RBC 3.16 M/mcL (4.50-5.90); Red Cell Distribution Width 13.8 % (11.5-14.5)
[2017-11-13] MEDS: 0.9 % SODIUM CHLORIDE 10 ML SYRINGE IV SCH (05:30)
[2017-11-13] MEDS: ACETAMINOPHEN 325 MG TABLET PO PRN ×2 (05:55→11:22)
[2017-11-13] MEDS: traMADol 50 MG TABLET PO PRN (05:55)
[2017-11-13] MEDS: 0.9 % SODIUM CHLORIDE 1,000 ML IV SCH (05:57)
[2017-11-13 05:59] LABS: ALT/SGPT 14 U/l (0-40); Albumin/Globulin Ratio 1.4 (1.0-2.3); Alkaline Phosphatase 54 U/L (39-117); Bilirubin,Direct < 0.2 mg/dL (0.0-0.3); Blood Urea Nitrogen 32 mg/dl (8-23); Gamma Glutamyl Transpeptidase 23 U/L (8-61); Uric Acid 7.5 mg/dL (2.5-8.0)
[2017-11-13 06:26] LABS: Band Neutrophils % 2 % (0-10); Lymphocytes % 8 % (15-49); Monocytes % (Manual) 2 % (1-12); Platelet Estimate DECREASED (NORMAL); RBC Morphology NORMAL (NORMAL); Segmented Neutrophils % 88 % (38-78)
--- NOTE | 2017-11-13 06:52 | Orthopedic Progress Note ---
Subjective Patient information: Note initiated : 11/13/17 at 6:50 am Service Date, if different from initiated Date: [] Patient: John Hernández 87 y/o M admitted on 11/11/17 for Fall, Lt Hip Pain/ Left Femoral Neck Fracture. Chief Complaint: [S/p ORIF of left hip fx] Patient is doing well. No particular complaints. He requires assistance to stand. Denies any chest pain, SOA, calf tenderness. Principal diagnosis: Left femoral neck fx Objective Vital signs: Vital Signs Temp Pulse Pulse Resp BP Pulse Ox 11/13/17 04:25 97.2 F 69 18 159/79 94 11/13/17 00:00 97.2 F 70 18 134/71 94 11/12/17 20:36 95 11/12/17 20:00 97.2 F 89 18 130/75 92 11/12/17 16:06 98.5 F 20 121/70 95 11/12/17 13:00 98.1 F 20 128/74 93 11/12/17 08:30 56 L 20 95 11/12/17 07:19 97.6 F 22 131/76 95 Intake and Output 11/12/17 11/13/17 11/13/17 21:59 05:59 13:59 Intake Total 130 / 130 250 / 250 Output Total 350 / 350 575 / 575 Balance -220 / -220 -325 / -325 Intake: Oral 130 / 130 250 / 250 Output: Void Amount 350 / 350 575 / 575 Other: Meal Lunch Percent of Meal Consumed 100% Weight 163 lb Intake & Output: Intake & Output 11/12/17 11/13/17 11/13/17 21:59 05:59 13:59 Intake Total 130 / 130 250 / 250 Output Total 350 / 350 575 / 575 Balance -220 / -220 -325 / -325 Weight 163 lb Intake: Oral 130 / 130 250 / 250 Output: Void Amount 350 / 350 575 / 575 Other: Meal Lunch Percent of Meal Consumed 100% Incision: Yes healing, Yes clean and dry Incision clean and dry: Yes Dressing: Yes clean, Yes dry, Yes intact Weight bearing status: non (TTWB on LLE) Neurological exam IM: Yes alert, Yes altered, Yes motor sensory intact, Yes neurovascular intact Extremities exam IM: Yes calf tenderness (negative), Yes tenderness (left lateral hip), Yes Edgar's sign (negative bilaterally), Yes Foot pink and warm, Yes neurovascular intact - Labs CBC & BMP: 11/13/17 04:21 11/13/17 04:21 Labs: Orthopedic Labs 11/11/17 09:29 PT 13.4 INR 1.0 11/13/17 11/12/17 11/11/17 04:21 05:51 09:29 Hgb 10.3 L 11.3 L 12.6 L Hct 31.2 L 34.1 L 37.5 L Assessment and Plan (1) Fracture of left hip TTWB on LLE. May stand with PT. Discharge to [facility] tomorrow. Daily dressing changes with dry dressings. Aspirin BID X30 days for DVT prophylaxis. He may take Tramadol and [place] 7.5/325 for breakthrough pain at [facility]. Status: Acute Qualifiers: Encounter type: initial encounter Fracture type: closed Qualified Code(s) : S72.002A - Fracture of unspecified part of neck of left femur, initial encounter for closed fracture
[2017-11-13] MEDS: OMEPRAZOLE 20 MG CAPSULE PO SCH (07:06)
[2017-11-13] MEDS ORDERED: CALCITRIOL 0.25 MCG CAPSULE PO SCH (09:00)
[2017-11-13] MEDS: FINASTERIDE 5 MG TABLET PO SCH (09:09)
[2017-11-13] MEDS: HEPARIN 5,000 UNIT/ML VIAL SQ SCH (09:09)
[2017-11-13] MEDS: sitaGLIPtin 100 MG TABLET PO SCH (09:10)
[2017-11-13] MEDS: TAMSULOSIN 0.4 MG CAPSULE PO SCH (09:10)
[2017-11-13] MEDS: DOCUSATE SODIUM 100 MG CAPSULE PO SCH (09:10)
[2017-11-13] MEDS: MULTIVIT,THER IRON,CA,FA & MIN 1 TABLET PO SCH (09:10)
[2017-11-13] MEDS: amLODIPine 5 MG TABLET PO SCH (09:10)
[2017-11-13] MEDS: TORSEMIDE 10 MG TABLET PO SCH (09:10)
[2017-11-13] MEDS: INSULIN LISPRO 1 UNIT/0.01 ML UNIT SQ SCH ×2 (09:22→13:13)
[2017-11-13] MEDS ORDERED: HYDROCODONE/APAP 7.5/325MG TABLET PO PRN (09:44)
--- NOTE | 2017-11-13 11:24 | Discharge Summary ---
Medical - DS: Prov Patient information: Note initiated : 11/13/17 at 11:20 am Service Date, if different from initiated Date: [] Patient: John Hernández 87 y/o M admitted on 11/11/17 for Fall, Lt Hip Pain/ Left Femoral Neck Fracture. Chief Complaint: [] Date of admission: 11/11/17 13:18 Discharge date: 11/13/17 Primary care physician: Troy Ruano Consults: 11/11/17 11:33 Consult to Physician [CONS] Stat Comment: Consulting Provider: Branden Canales Reason For Exam: Physician to Consult Consult to Physician [CONS] Stat Comment: Consulting Provider: Rudolph Head Reason For Exam: Physician to Consult Medical - DS: Meds - Discharge Medications Prescriptions: Aspirin 325 mg PO BID #60 tab Hydrocodone/APAP 7.5/325Mg [[place] 7.5-325Mg] 1 - 2 tab PO Q6HP PRN #60 tab PRN Reason: Breakthrough Pain traMADol [Ultram] 50 mg PO Q6HP PRN #60 tab PRN Reason: Pain Active and Home Medications: Home Medications aspirin 81 mg tablet,delayed release 81 mg PO QDAY tab 11/08/14 [History Confirmed 11/11/17 Last Taken Unknown] multivitamin tablet 1 tab PO QDAY tab 11/08/14 [History Confirmed 11/11/17 Last Taken Unknown] omega 6-rqs-lgm-fish oil 900 mg-1,400 mg capsule,delayed release 1 cap PO QDAY cap 11/08/14 [History Confirmed 11/11/17 Last Taken Unknown] ascorbic acid (vitamin C) 500 mg tablet 500 mg PO QDAY tab 04/01/16 [History Confirmed 11/11/17 Last Taken Unknown] latanoprost 0.005 % eye drops 1 drp OPHTHALMIC QDAY 04/01/16 [History Confirmed 11/11/17 Last Taken Unknown] melatonin 5 mg tablet 2.5 mg PO HS tab 04/01/16 [History Confirmed 11/11/17 Last Taken Unknown] cyanocobalamin (vit B-12) 1,000 mcg/mL injection kit 1,000 mcg IM QMONTH #7 each 12/24/16 [Rx Confirmed 11/11/17 Last Taken Unknown] finasteride 5 mg tablet 5 mg PO QDAY #90 tab 10/02/17 [Rx Confirmed 11/11/17 Last Taken Unknown] tamsulosin 0.4 mg capsule 0.4 mg PO QDAY #90 cap 02/24/17 [Rx Confirmed Last Taken Unknown] omeprazole 20 mg capsule,delayed release 20 mg PO BID #180 cap 02/25/17 [Rx Confirmed 11/11/17 Last Taken Unknown] Iron 65 mg PO 3XW #1 04/03/17 [Rx Confirmed 11/11/17 Last Taken Unknown] gabapentin 100 mg capsule 200 mg PO QHS #180 cap 04/23/17 [Rx Confirmed Last Taken Unknown] tramadol 50 mg tablet 50 mg PO TID PRN #90 tab 07/30/17 [Rx Confirmed 11/11/17 Last Taken Unknown] amlodipine 5 mg tablet 5 mg PO QDAY #90 tab 08/07/17 [Rx Confirmed 11/11/17 Last Taken Unknown] calcitriol 0.5 mcg capsule 0.5 mcg PO .qod #45 cap 08/11/17 [Rx Confirmed Last Taken Unknown] rosuvastatin 5 mg tablet 2.5 mg PO QDAY #45 tab 08/15/17 [Rx Confirmed 11/11/17 Last Taken Unknown] Blood Sugar Diagnostic [Contour] 0 each .ROUTE .MEDSUPPLY 11/11/17 [History Confirmed 11/11/17 Last Taken Unknown] Comp.stocking,Thigh,Reg,Medium [T.e.d. Anti-Embolism Stocking] 0 each .ROUTE .MEDSUPPLY 11/11/17 [History Confirmed 11/11/17 Last Taken Unknown] Insulin Glargine, Human [Lantus] 8 unit SQ QPM 11/11/17 [History Confirmed 11/11 Last Taken Unknown] Lancets [Micro Thin Lancets] 0 each .ROUTE .MEDSUPPLY 11/11/17 [History Confirmed 11/11/17 Last Taken Unknown] Lancets [OneTouch UltraSoft Lancets] 0 each .ROUTE .MEDSUPPLY 11/11/17 [History Confirmed 11/11/17 Last Taken Unknown] Pen Needle, Diabetic [BD Ultra-Fine Millicent Pen [place]] 0 each .ROUTE .MEDSUPPLY 11/11/17 [History Confirmed 11/11/17 Last Taken Unknown] diabetic shoes 1 each MISC DAILY 11/11/17 [History Confirmed 11/11/17 Last Taken Unknown] Aspirin 325 mg PO BID #60 tab 11/13/17 [Rx Last Taken Unknown] Hydrocodone/APAP 7.5/325Mg [[place] 7.5-325Mg] 1 - 2 tab PO Q6HP PRN #60 tab 11/13 [Rx Last Taken Unknown] torsemide 10 mg tablet 10 mg PO QDAY #90 tab 11/13/17 [Rx Last Taken Unknown] traMADol [Ultram] 50 mg PO Q6HP PRN #60 tab 11/13/17 [Rx Last Taken Unknown] Medical - DS: Hosp Hospital course: Discharge diagnosis * Left femoral neck fracture -postop day 2. Discharging to SNF today. Continue follow-up with orthopedics on discharge * Pain management per orthopedics. On tramadol/[place] * DVT prophylaxis on aspirin twice a day per orthopedics Hospitalist consult * History of hypertension -remained well controlled on amlodipine * BPH -stable on finasteride/tamsulosin * Neuropathy on gabapentin * DM type II on basal prandial insulin * History of glaucoma latanoprost * GERD on PPI * Hyperlipidemia and statin Brief hospital course Mr. Hernández is a 87 year old M sustained fall injuring left hip. [place]. It is unclear the exact precipitant as he does not recollect slipping or tripping. He landed on his left hip sustaining injury. He was subsequently brought into the ER Workup in ER consistent with left hip fracture. Admitted for operative repair. Orthopedics consulted. Extensive past medical issues including chronic kidney disease/insulin-dependent DM type 2/history of CAD. Patient denies lightheadedness chest pain, neck pain, vertigo, dizziness, thunderclap headache or recent falls. He denies fever chills shortness of breath diarrhea dysuria, weight loss 11/12-postop day 1. Patient doing well. No overnight events. No concerns per staff. White count 9.4. Creatinine 1.7. Ongoing physical therapy. Pain in good control. No fever chills. Anticipate discharge to SNF in 24-48 hours 11/13-patient doing well postoperatively. Discharged to SNF for continued postoperative flexion rehabilitation. No overnight fever chills or concerns per staff. Stable labs and hemodynamics. Discharge diagnosis: . - Time Spent with Patient Total time spent providing and/or coordinating discharge services: Greater than 30 minutes Medical - DS: Exam - Constitutional Vitals: Vital Signs Temp Pulse Pulse Resp BP Pulse Ox 11/13/17 07:19 80 11/13/17 07:11 97.5 F 87 18 144/79 95 11/13/17 04:25 97.2 F 69 18 159/79 94 11/13/17 00:00 97.2 F 70 18 134/71 94 11/12/17 20:36 95 11/12/17 20:00 97.2 F 89 18 130/75 92 11/12/17 16:06 98.5 F 20 121/70 95 11/12/17 13:00 98.1 F 20 128/74 93 Intake and Output 11/12/17 11/13/17 11/13/17 21:59 05:59 13:59 Intake Total 130 / 130 250 / 250 1959 Output Total 350 / 350 575 / 575 Balance -220 / -220 -325 / -325 1959 Intake: IV 1000 / 1000 Sodium Chloride 0.9% 1,000 ml @ 1000 / 1000 50 mls/hr IV .Q20H [facility] Rx#: [id number] Oral 130 / 130 250 / 250 960 / 960 Output: Void Amount 350 / 350 575 / 575 Other: Meal Lunch Breakfast Percent of Meal Consumed 100% 100% Feeding Ability Independent Weight 163 lb Medical - DS: Data Labs on day of discharge: Labs from last 24 hours 11/13/17 11/13/17 04:21 04:21 WBC 13.9 H RBC 3.16 L Hgb 10.3 L Hct 31.2 L MCV 98.8 MCH 32.7 MCHC 33.1 RDW 13.8 Plt Count 134 L MPV 7.9 Total Counted 100 Seg Neutrophils % 88 H Band Neutrophils % 2 Lymphocytes % 8 L Monocytes % (Manual) 2 Platelet Estimate Decreased A RBC Morphology Normal Sodium 137 Potassium 5.0 Chloride 103 Carbon Dioxide 24 Anion Gap 10.0 BUN 32 H Creatinine 2.0 H GFR Calculation 29 Glucose 121 H Uric Acid 7.5 Calcium 9.0 Phosphorus 3.2 Magnesium 2.1 Total Bilirubin 0.2 Direct Bilirubin < 0.2 GGT 23 AST 29 ALT 14 Alkaline Phosphatase 54 Lactate Dehydrogenase 236 Total Protein 5.2 L Albumin 3.0 L Globulin 2.2 Albumin/Globulin Ratio 1.4 Triglycerides 138 Medical - DS: A/P - Patient/Caregiver Discharge Instructions Activity: as per physical therapy Diet: Renal/Consistent Carbs Additional Instructions: Discharge Instructions: Wear comfortable clothing for your physical therapy. Toe touch weight bearing with left leg. You have Dermabond (a dressing with a mesh-like appearance), DO NOT remove mesh. Cover site daily with gauze dressing. You may start showering on post op day #2. The Dermabond dressing can get wet, do not scrub dressing. Pat dry, then place new dressing (above). To avoid constipation while taking any narcotic pain medication, take an over the counter stool softener/laxative. Use ice packs as directed, on for 20 minutes at a time throughout the day. This and elevation will help with pain and swelling. Call your physician for fevers above 100.5 or pain not controlled by medication. Take Aspirin twice daily, for 30 days, as prescribed to prevent blood clots ( see medication list). Follow-up PCP in 5 days F/u orthopedics as scheduled by orthopedics along with post op care. Continue aggressive bowel regimen to prevent constipation Continue fall precautions Continue aggressive PT OT evaluation and treatment at [facility]. ST eval and treatment if indicated All meals on chair sitting upright at 90 degrees to prevent aspiration Return to ER if worsening fever chills shortness of breath, diarrhea, bleeding Continue diet and activity as advised Discussed importance of medication adherence Please review medication list with patient prior to discharge Please schedule follow-up with PCP/Providers prior to discharge and provide printouts Portions of this chart may have been created with [employer] voice recognition software. Occasional wrong-word or ?sound-like? substitutions may have occurred due to the inherent limitations of voice recognition software. Please read the chart carefully and recognize, using context, where the substitutions have occurred. CC- PCP Prescriptions: Aspirin 325 mg PO BID #60 tab Hydrocodone/APAP 7.5/325Mg [[place] 7.5-325Mg] 1 - 2 tab PO Q6HP PRN #60 tab PRN Reason: Breakthrough Pain traMADol [Ultram] 50 mg PO Q6HP PRN #60 tab PRN Reason: Pain Other Amb Orders: OT Discharge Order Location: Determined By Patient Physical Therapy at Discharge - General Location: Determined By Patient Brace/Splint Location: Determined By Patient - Problem Maintenance (1) Fracture of left hip Status: Acute Qualifiers: Encounter type: initial encounter Fracture type: closed Qualified Code(s) : S72.002A - Fracture of unspecified part of neck of left femur, initial encounter for closed fracture - Follow up Plan Follow up with: Rudolph Head MD [Physician] - (Call/Schedule follow up to be seen 10-14 days post surgery.) Troy Ruano MD [Primary Care Provider] - Disposition: Xfer SNF Prognosis: Fair Rehab Potential: Fair I certify that the patient requires SNF services: Yes Overall status at discharge: patient is progressing back to baseline Medical - DS: Qual - VTE Deep Vein Thrombosis/Pulmonary Embolism Present on Admission: No
== END 2017-11-13 14:05 | DRG 481 ==
LOC: ED 08:26 → MEDSUR 13:18
PROVIDERS: ADMIT Internal Medicine; ATTEND Internal Medicine